=== PATIENT | male | born 1970 | race Caucasian/White ===

== ENCOUNTER 2018-02-19 13:13 | Emergency (ER) | payer BC, OTHER ==
[~2018-02-19] VITALS: Ht 188 cm; Wt 74.8 kg
[2018-02-19] MEDS ORDERED: VENTOLIN HFA 1818 GM INH (13:28)
[2018-02-19] MEDS ORDERED: QVAR REDIHALE10.6 G1 INH (13:28)
[2018-02-19 14:08] LABS: ABSOLUTE NEUTROPHILS 3.3 thou/uL (1.4-8.2); BASOPHILS 1.7 % (0.0-2.0); EOSINOPHILS 0.7 % (0.0-3.0); HEMATOCRIT 46.4 % (42.0-52.0); HEMOGLOBIN 16.3 gm/dL (14.0-18.0); LYMPHOCYTES 14.2 % (24.0-44.0); MCHC 35.1 g/dL (28.0-37.0); MCV 96.7 fL (80.0-100.0); MONOCYTES 10.1 % (1.0-8.0); PLATELET COUNT 296 thou/uL (150-400); POLYS 73.3 % (36.0-66.0); RDW 12.7 % (10.5-14.5); WBC 4.5 thou/uL (4.0-11.0)
[2018-02-19 14:19] LABS: ANION GAP 11 mmol/L (7-16); BUN 7 mg/dL (7-18); CALCIUM 8.9 mg/dL (8.5-10.1); CHLORIDE 99 mmol/L (98-107); CO2 27 mmol/L (21-32); CREATININE 0.9 mg/dL (0.7-1.3); GLUCOSE 101 mg/dL (74-106); POTASSIUM 3.6 mmol/L (3.5-5.1); SODIUM 137 mmol/L (136-145)
[2018-02-19 14:24] LABS: ALBUMIN 4.2 g/dL (3.4-5.0); LIPASE 136 U/L (73-393); SGOT 34 U/L (15-37); SGPT 37 U/L (30-65); TOTAL PROTEIN 7.9 g/dL (6.4-8.2); TROPONIN-I <0.06 ng/mL (<0.06)
[2018-02-19] MEDS ORDERED: LISINOPRIL10 MG PO (14:46)
[2018-02-19 15:10] VITALS: BP 156/112
--- NOTE | 2018-02-19 16:19 | EKG ---
[place] [address] [address] [facility] [place] [address] ELECTROCARDIOGRAM REPORT Name: PETAR PEREZ Room [facility] [id number] Admission: 02/19/18 Attend Phys: Discharge: 02/19/18 Date of : 68 Report #: [id number] THIS REPORT FOR: //name// [facility] ED Test Date: 2018-02-19 Test Time: 13:19:17 Pat Name: PETAR PEREZ Department: Room: Gender: M [employer] Reviewer: : 1970 Requested By: Ousmane Berrios Order Number: [id number] MD: Herminio Ortega Measurements Intervals [place] Rate: 116 P: 68 MN: 144 QRS: 73 QRSD: 109 T: 38 QT: 315 QTc: 438 Interpretive Statements Sinus tachycardia Ventricular trigeminy Left atrial enlargement RSR' in V1 or V2, probably normal variant No previous ECG available for comparison Electronically Signed On 02-19-2018 16:19:30 [employer] by Herminio Ortega [email or web address] <ELECTRONICALLY SIGNED> By: Herminio Ortega MD 02/19/18 1619 1319 18 Herminio Ortega MD /RYDER
== END 2018-02-19 15:12 | disposition home or self-care (01) ==
LOC: ER 13:13
PROVIDERS: Emergency Medicine
DX: I16.0 Hypertensive urgency (principal); J45.909 Unspecified asthma, uncomplicated; Z88.8 Allergy status to other drugs, medicaments and biological substances; Z87.891 Personal history of nicotine dependence